=== PATIENT | male | born 1980 | race Caucasian/White ===

== ENCOUNTER 2021-11-20 11:00 | Emergency (ER) | payer MEDICAID ==
[~2021-11-20] VITALS: Ht 180.3 cm; Wt 63.5 kg
[2021-11-20] MEDS ORDERED: TETANUS-DIPTH-ACEL PERTUSSIS 0.5ML SYR Tdap IM ONE (13:45)
[2021-11-20] MEDS ORDERED: cefTRIAXone SOD 1,000 MG VL IM ONE (13:45)
[2021-11-20] MEDS ORDERED: IBUP800T27 PO (14:37)
[2021-11-20] MEDS ORDERED: CEPH-509 PO (14:37)
[2021-11-20 15:09] VITALS: BP 110/70
== END 2021-11-20 15:39 | disposition home or self-care (01) ==
LOC: ER 11:00
DX: S61.011A Laceration without foreign body of right thumb without damage to nail, initial encounter (principal); F17.210 Nicotine dependence, cigarettes, uncomplicated; W23.0XXA Caught, crushed, jammed, or pinched between moving objects, initial encounter; Y93.89 Activity, other specified; Y92.89 Other specified places as the place of occurrence of the external cause; Y99.8 Other external cause status
CPT/HCPCS: 12002; 73130; 96372; 99283; J0696; 90715

== ENCOUNTER 2022-01-14 03:38 | Emergency (ER) | payer MEDICAID ==
[~2022-01-14] VITALS: Ht 180.3 cm; Wt 62.6 kg
[~2022-01-14 03:38] MED LIST: CEPH-509 PO; IBUP800T27 PO
[2022-01-14 05:28] LABS: Basophils # (auto) 0.1 10 ^3/uL (0-0.2); Basophils % (auto) 0.4 % (0.0-2.0); Eosinophils # (auto) 0.2 10 ^3/uL (0-0.8); Eosinophils % (auto) 1.6 % (0.0-7.0); Hematocrit 38.9 % (41.0-53.0); Hemoglobin 13.3 g/dL (13.5-17.5); Lymphocytes # (auto) 1.6 10 ^3/uL (0.4-5.4); Lymphocytes % (auto) 13.8 % (10.0-50.0); Mean Corpuscular Hemoglobin 31.1 pg (28.0-32.0); Mean Corpuscular Hgb Conc. 34.3 g/dL (32.0-36.0); Mean Corpuscular Volume 90.7 fL (80.0-100.0); Monocytes # (auto) 0.9 10 ^3/uL (0-1.3); Monocytes % (auto) 7.6 % (0.0-12.0); Neutrophils % (auto) 76.6 % (37.0-80.0); Red Blood Cells 4.29 10^6/uL (4.5-5.90); Red Cell Distribution Width 12.9 % (11.8-14.3); White Blood Cell 11.7 10^3/uL (4.4-10.8)
[2022-01-14 05:40] LABS: Potassium 3.9 mmol/L (3.5-5.1)
[2022-01-14 05:46] LABS: Albumin 3.7 g/dL (3.4-5.0); BUN/Creatinine Ratio 14.4; Bilirubin, Total 0.8 mg/dL (0.2-1.0); Calcium 8.9 mg/dL (8.5-10.1); Total Protein 7.2 g/dL (6.4-8.2)
[2022-01-14 06:15] LABS: Lactic Acid w/Reflex 2.1 mmol/L (0.4-2.0)
[2022-01-14] MEDS ORDERED: cefTRIAXone W LIDOCAINE 1 GM IM IM ONE (07:30)
[2022-01-14] MEDS ORDERED: CLINDAMYCIN 600 MG/4 ML VL IM ONE (07:30)
[2022-01-14] MEDS: IOHEXOL 350 MG/ML 100ML IJ ONE (07:59)
[2022-01-14] MEDS: cefTRIAXone 1GM/50ML D5W 50 ML IV ONE (09:00)
[2022-01-14] MEDS: ACETAMINOPHEN 325 MG TAB PO ONE (09:01)
[2022-01-14] MEDS: CLINDAMYCIN 300MG IV 50 ML IV ONE (09:01)
[2022-01-14] MEDS: LACTATED RINGER'S 1,000 ML IV ONE (11:00)
[2022-01-14] MEDS ORDERED: CEPH-509 PO (13:27)
[2022-01-14] MEDS ORDERED: CLIN300C8 PO (13:27)
[2022-01-14 14:18] VITALS: BP 122/86
== END 2022-01-14 14:23 | disposition home or self-care (01) ==
LOC: ER 03:38
DX: K04.7 Periapical abscess without sinus (principal); R94.31 Abnormal electrocardiogram [ECG] [EKG]
CPT/HCPCS: 36415; 70491; 80053; 83605; 85025; 86850; 86900; 86901; 87040; 93005; 96361; 96365; 96366; 96368; 99285; J0696; J3490; Q9967